=== PATIENT | male | born 1980 | race Caucasian/White ===

== ENCOUNTER → 2018-10-30 | Outpatient (CLI) | payer OTHER ==
--- NOTE | 2018-10-30 08:41 | CT ---
EXAMINATION TYPE: CT wrist RT wo con DATE OF EXAM: 10/30/2018 COMPARISON: None HISTORY: Scaphoid right wrist CT DLP: 203 mGycm Automated exposure control for dose reduction was used. FINDINGS: There is a fracture through the waist of the scaphoid. There also appears to be a cortical defect ziyad ng the articular surface of the distal radius. Hairline nondisplaced fracture in the differential mar gnosis. Adjacent soft tissue edema noted. Main joint spaces are preserved. No erosive changes. IMPRESSION: 1. Fracture through the waist of the scaphoid. This would put the patient at risk for osteonecrosis c orrelate clinically. 2. There is a hairline nondisplaced intra-articular fracture of the distal radius
== END | disposition home or self-care (01) ==
LOC: RADCTMAIN 07:49
PROVIDERS: ATTEND Orthopaedic Surgery
DX: S62.001G Unspecified fracture of navicular [scaphoid] bone of right wrist, subsequent encounter for fracture with delayed healing (principal); S52.571A Other intraarticular fracture of lower end of right radius, initial encounter for closed fracture

== ENCOUNTER → 2019-02-18 | Outpatient (CLI) | payer OTHER ==
--- NOTE | 2019-02-18 12:57 | CT ---
EXAMINATION TYPE: CT wrist RT wo con DATE OF EXAM: 02/18/2019 COMPARISON: Prior CT 10/30/2018 HISTORY: Fracture of middle third of scaphoid right wrist, delayed healing CT DLP: 111.2 mGycm Automated exposure control for dose reduction was used. Helical acquisition through the wrist. Chavira l and sagittal reconstructions. FINDINGS: Interval placement of a metallic screw across the patient's scaphoid waist, no bony fusion is identif ied however, minimal persistent lucency is present with some local bone resorption also suspected. So me bone resorption also present at the dorsal aspect of the distal radius also has developed in the i nterval with a focal cortical disruption, the fracture of the articular surface of the distal radius is again noted. IMPRESSION: POSTOP CHANGES, PERSISTENT LUCENCIES CONSISTENT WITH PATIENT'S FRACTURES AGAIN NOTED. INTERVAL BONE R ESORPTION WITH CORTICAL DEFECT AT THE DORSAL ASPECT OF THE DISTAL RADIUS.
== END | disposition home or self-care (01) ==
LOC: RADCTMAIN 11:27
PROVIDERS: ATTEND Orthopaedic Surgery
DX: S62.024G Nondisplaced fracture of middle third of navicular [scaphoid] bone of right wrist, subsequent encounter for fracture with delayed healing (principal)

== ENCOUNTER → 2019-05-15 | Outpatient (CLI) | payer BC ==
--- NOTE | 2019-05-15 11:53 | P.STRESS ---
- Stress Test Note Stress Test Results/Findings: Exam Performed: stress test Exam Date: 05/15/19 Reason for Exam: i25.10 HEART DISEASE OF [place] ORIGIN Height: 6 ft 2 in Weight: 97.522 kg Protocol: ZACK Stage: 4 Duration of Exercise: 11:00 Resting Heart Rate: 78 Resting Blood Pressure: 114/79 Maximum Achieved Heart Rate: 158 Maximum Achieved Blood Pressure: 158/52 85% PMHR: 155 100% PMHR: 182 METS: 12.1 Technologist Comment: Stress Test Results/Findings: Baseline heart is 78 beats a minute, Baseline blood pressure 114/79 mmHg Baseline 12 ECG shows sinus rhythm with normal cardiac intervals Patient exercised on a Zack protocol for 11 minutes achieving a peak heart rate of 150 beats a minute. Normal blood pressure response to exercise There is no ECG ms for ischemia no x-rays inducible arrhythmias are noted Impression good exercise capacity without any ECG evidence for ischemia
--- NOTE | 2019-05-15 16:47 | EST ---
Stress Test Results/Findings: Exam Performed: stress test Exam Date: 05/15/19 Reason for Exam: i25.10 HEART DISEASE OF [place] ORIGIN Height: 6 ft 2 in Weight: 97.522 kg Protocol: ZACK Stage: 4 Duration of Exercise: 11:00 Resting Heart Rate: 78 Resting Blood Pressure: 114/79 Maximum Achieved Heart Rate: 158 Maximum Achieved Blood Pressure: 158/52 85% PMHR: 155 100% PMHR: 182 METS: 12.1 Technologist Comment: Stress Test Results/Findings: Baseline heart is 78 beats a minute, Baseline blood pressure 114/79 mmHg Baseline 12 ECG shows sinus rhythm with normal cardiac intervals Patient exercised on a Zack protocol for 11 minutes achieving a peak heart rate of 150 beats a minute. Normal blood pressure response to exercise There is no ECG ms for ischemia no x-rays inducible arrhythmias are noted Impression good exercise capacity without any ECG evidence for ischemia MTDD
--- NOTE | 2019-05-16 19:44 | ECHOF ---
Referral Reason:I25.10, MEASUREMENTS -------- HEIGHT: 182.9 cm WEIGHT: 97.5 kg BP: IVSd: 1.0 cm (0.6 - 1.1) LVIDd: 4.3 cm (3.9 - 5.3) LVPWd: 1.2 cm (0.6 - 1.1) IVSs: 1.4 cm LVIDs: 2.1 cm LVPWs: 2.0 cm RVIDd: 2.6 cm (< 3.3) LAESV Index (A-L): 16.61 ml/m Ao Diam: 3.1 cm (2.0 - 3.7) LA Diam: 3.4 cm (2.7 - 3.8) AV Cusp: 2.0 cm (1.5 - 2.6) EPSS: 0.2 cm MV E Bhargav: 0.66 m/s MV DecT: 189 ms MV A Bhargav: 0.42 m/s MV E/A Ratio: 1.59 RAP: 5.00 mmHg RVSP: 27.46 mmHg MV EF SLOPE: 125.93 mm/s (70 - 150) MV EXCURSION: 1.64 cm (> 18.000) FINDINGS -------- Sinus rhythm. This was a technically good study. The left ventricular size is normal. There is borderline concentric left ventricular hypertrophy. Overall left ventricular systolic function is normal with, an EF between 55 - 60 %. The right ventricle is normal in size. Left atrium is normal size by volume. The right atrial size is normal. Interatrial and interventricular septum intact. The aortic valve is trileaflet and appears structurally normal. The mitral valve is normal. Mild mitral regurgitation is present. The tricuspid valve appears structurally normal. Trace tricuspid regurgitation present. Right maryan tricular systolic pressure is normal at < 35 mmHg. Trace/mild (physiologic) pulmonic regurgitation. The aortic root size is normal. The inferior vena cava was not well visualized. The flow patterns, measured by Doppler, appear normal. There is no pericardial effusion. CONCLUSIONS -------- 1. Sinus rhythm. 2. This was a technically good study. 3. The left ventricular size is normal. 4. There is borderline concentric left ventricular hypertrophy. 5. Overall left ventricular systolic function is normal with, an EF between 55 - 60 %. 6. The right ventricle is normal in size. 7. Left atrium is normal size by volume. 8. The right atrial size is normal. 9. Interatrial and interventricular septum intact. 10. The aortic valve is trileaflet and appears structurally normal. 11. The mitral valve is normal. 12. Mild mitral regurgitation is present. 13. The tricuspid valve appears structurally normal. 14. Trace tricuspid regurgitation present. 15. Right ventricular systolic pressure is normal at < 35 mmHg. 16. Trace/mild (physiologic) pulmonic regurgitation. 17. The aortic root size is normal. 18. The inferior vena cava was not well visualized. 19. The flow patterns, measured by Doppler, appear normal. 20. There is no pericardial effusion. MARINE SERVICES TECHNICIAN: Citlaly Cuevas RDCS
== END | disposition home or self-care (01) ==
LOC: RADNMMAIN 10:33
PROVIDERS: ATTEND Family Medicine
DX: I34.0 Nonrheumatic mitral (valve) insufficiency (principal)
CPT/HCPCS: 93017; 93306